=== PATIENT | female | born 1995 ===

== ENCOUNTER 2017-05-01 23:02 | Emergency (ER) | payer OTHER ==
[~2017-05-01] VITALS: Ht 170 cm; Wt 46.3 kg
[2017-05-01 23:07] VITALS: TEMP 97.7
[2017-05-01 23:54] LABS: BASO % 0.3 % (0.0-2.0); EOS % 0.1 % (0-4.0); GRAN # 9.3 (1.4-6.5); GRAN % 85.9 % (42.2-75.2); HEMATOCRIT 37.1 % (37.0-47.0); HEMOGLOBIN 12.3 g/dl (12.5-16.0); MEAN CELL VOLUME 80 fl (80.0-100.0); MEAN CORPUSCULAR HEMOGLOBIN 27 pg (27.0-31.0); MEAN CORPUSCULAR HGB CONC 33 g/dl (33.0-37.0); MEAN PLATELET VOLUME 10.1 fl (7.4-10.4); MONO # 0.5 (0.1-0.6); MONO % 4.4 % (1.7-9.3); PLATELET COUNT 272 K/mm3 (130-400); RED BLOOD COUNT 4.62 M/mm3 (4.10-5.30); WHITE BLOOD COUNT 10.8 K/mm3 (4.8-10.8)
[2017-05-02 00:08] LABS: ADJUSTED CALCIUM 9.2 mg/dL (8.4-10.2); BILIRUBIN,TOTAL 2.1 mg/dL (0.0-1.0); CREATININE, serum 0.64 mg/dL (0.52-1.25); TOTAL PROTEIN 8.6 gm/dL (6.4-8.2)
[2017-05-02 00:58] LABS: COLLECTION METHOD CLEAN CATCH
[2017-05-02 01:04] LABS: MUCOUS Present /lpf; PH 5 (5-8); URINE APPEARANCE Hazy; URINE BACTERIA None Seen /hpf; URINE BILIRUBIN Negative (NEGATIVE); URINE BLOOD Negative (NEGATIVE); URINE COLOR Yellow; URINE GLUCOSE Negative (NEGATIVE); URINE KETONE 1+ (NEGATIVE); URINE LEUKOCYTE ESTERASE Negative (NEGATIVE); URINE PROTEIN(semi-quant) 2+ (NEGATIVE); URINE UROBILINOGEN Negative (NEGATIVE)
[2017-05-02 02:32] VITALS: BP 104/69; PULSE 76
== END 2017-05-02 02:46 | disposition home or self-care (01) ==
LOC: COL.ER 23:02
PROVIDERS: Emergency Medicine
DX: S06.0X0A Concussion without loss of consciousness, initial encounter (principal); R55 Syncope and collapse; W18.2XXA Fall in (into) shower or empty bathtub, initial encounter